=== PATIENT | female | born 1940 | race Caucasian/White ===

== ENCOUNTER 2016-06-16 13:38 | Inpatient (IN) | payer OTHER ==
[~2016-06-16] VITALS: Ht 149.9 cm; Wt 70.0 kg
[~2016-06-16 13:38] MED LIST: ALLEGRA ALLERG180 MG PO; AMARYL4 MG PO; ASPIR-LOW81 MG PO; ATARAX,VISTARIL25 MG PO; CAL-CITRATE PL1 EACH PO; CARVEDILOL6.25 MG PO; CIPRO250 MG PO; COUMADIN,JANTOVE5 MG PO; COUMADIN2.5 MG PO; COUMADIN5 MG PO; COZAAR100 MG PO; CRESTOR20 MG PO; FENOFIBRATE145 M1 PO; FISH OIL CONC1 EACH PO; GLIMEPIRIDE4 MG PO; Glucophage PO; HUMALOG (UNIT)1 UNIT IV; HUMALOG100 UNIT/1 SQ; HYDROCORTISONE30 G2 TP; HYZAAR 50-121 TABLET PO; Hyzaar 50-12.5 PO; IRON325 M1 PO; LANTUS (UNITS)1 UNIT IV/IM; LANTUS 3 M100 UNITS/ SC; LANTUS 3 M100 UNITS1 SC; LANTUS100 UNIT/1 SQ; LASIX20 MG PO; LEVEMIR100 UNIT/2 SC; LEVOFLOXACIN750 MG PO; LIDODERM 5% P1 PATCH TD; LISINOPRIL10 MG PO; LOPRESSOR100 MG PO; METFORMIN HCL500 MG PO; NORMODYNE,TRAN200 MG PO; NORMODYNE200 MG PO; NORVASC5 MG PO; NOVOLOG PE100 UNITS/ SC; PREVACID; PROPYLTHIOURACI50 M1 PO; PROPYLTHIOURACI50 MG PO; SENOKOT S,PE1 TABLET PO; SERTRALINE HCL50 MG PO; TAGAMET200 MG PO; TAGAMET300 MG PO; THERAGRAN1 TABLET PO; TOPROL XL100 MG PO; TRIAMTERENE-HC1 EAC1 PO; TRICOR145 MG PO; TRILIPIX135 MG PO; TYLENOL EXTRA500 MG PO; Tylenol Extra Streng PO; ULTRAM50 MG PO; VITAMIN D400 UNIT PO; Vicodin,Lortab 5/500 PO; XARELTO15 MG PO; ZOCOR80 MG PO; Zocor PO; amaryl; metformin hcl
[2016-06-16 15:12] LABS: HEMATOCRIT 35.3 % (36.0-46.0); MCH 30.3 PG (29.0-34.0); MCHC 32.6 G/DL (30.0-36.0); MCV 92.9 FL (83-99); MEAN PLAT.VOLUME 9.4 uM^3 (9.5-12.4); PLATELET COUNT 281 K/uL (156-360); RBC DIS.WIDTH-CV 12.9 % (11.8-14.6); RBC DIS.WIDTH-SD 41.9 % (39-53); WHITE BLOOD COUNT 7.3 K/uL (4.1-10.2)
[2016-06-16 15:22] LABS: CHLORIDE 106 mEq/L (99-109); POTASSIUM 4.7 mEq/L (3.7-5.4); SODIUM 138 mEq/L (136-147)
[2016-06-16 15:24] LABS: GLUCOSE 282 mg/dL (70-99)
[2016-06-16 15:25] LABS: ANION GAP 11 MEQ/L (2-14)
[2016-06-16 15:28] LABS: GFR ESTIMATE (CALCULATED) 36 mL/min/
[2016-06-16 15:29] LABS: UREA NITROGEN (BUN) 20 mg/dL (9-23)
[2016-06-16] MEDS ORDERED: LO-DOSE ASPIRIN81 M2 PO (17:07)
[2016-06-16] MEDS ORDERED: FUROSEMIDE20 MG PO (17:09)
[2016-06-16] MEDS ORDERED: TAGAMET300 MG PO (17:09)
[2016-06-16] MEDS ORDERED: CYMBALTA20 MG PO (17:11)
[2016-06-16] MEDS ORDERED: NORVASC10 MG PO (17:11)
[2016-06-16] MEDS ORDERED: HYDROXYZINE HCL25 MG PO (17:11)
[2016-06-16] MEDS ORDERED: VALSARTAN160 MG PO (17:12)
[2016-06-16 17:18] LABS: TROP-I INTERPRETATION NEGATIVE; TROPONIN-I 0.02 ng/mL (0.0-0.30)
[2016-06-16 18:17] LABS: POINT-OF-CARE USER ID 608261323
[2016-06-16 20:30] VITALS: BP 160/70
[2016-06-16 20:44] VITALS: BP 172/72
[2016-06-16 23:37] VITALS: BP 172/70
[2016-06-17 00:06] VITALS: BP 145/70
[2016-06-17 03:52] VITALS: BP 160/70
[2016-06-17 05:14] LABS: HEMATOCRIT 34.1 % (36.0-46.0); MCH 30.1 PG (29.0-34.0); MCHC 32.3 G/DL (30.0-36.0); MCV 93.4 FL (83-99); MEAN PLAT.VOLUME 9.2 uM^3 (9.5-12.4); PLATELET COUNT 252 K/uL (156-360); RBC DIS.WIDTH-CV 12.8 % (11.8-14.6); RBC DIS.WIDTH-SD 41.9 % (39-53); RED BLOOD COUNT 3.65 M/uL (3.80-5.20); WHITE BLOOD COUNT 8.3 K/uL (4.1-10.2)
[2016-06-17 05:24] LABS: CHLORIDE 107 mEq/L (99-109); POTASSIUM 4.3 mEq/L (3.7-5.4); SODIUM 139 mEq/L (136-147)
[2016-06-17 05:26] LABS: GLUCOSE 157 mg/dL (70-99)
[2016-06-17 05:28] LABS: ANION GAP 8 MEQ/L (2-14); TOTAL BILIRUBIN 0.4 mg/dL (0.0-1.0)
[2016-06-17 05:30] LABS: ALKALINE PHOSPHATASE 23 IU/L (3-129); GFR ESTIMATE (CALCULATED) > 59 mL/min/
[2016-06-17 05:31] LABS: UREA NITROGEN (BUN) 13 mg/dL (9-23)
[2016-06-17 08:24] VITALS: BP 157/96
[2016-06-17 12:05] VITALS: BP 161/69
[2016-06-17 16:32] VITALS: BP 137/83
[2016-06-17 19:18] LABS: ADD MIUA? NO; BILIRUBIN NEGATIVE; BLOOD NEGATIVE; COLOR YELLOW ((YELLOW)); GLUCOSE (STRIP) 100; KETONES NEGATIVE; LEUKOCYTES NEGATIVE; NITRITE NEGATIVE; PROTEIN (STRIP) 30; SPECIFIC GRAVITY 1.013 (1.000-1.030); UROBILINOGEN 0.2 MG/DL (0.2-1.0)
[2016-06-17 20:50] VITALS: BP 182/74
[2016-06-17 21:55] LABS: POINT-OF-CARE METER ID UU14149397
[2016-06-18] VITALS (7 sets, daily range): BP systolic 140–165; BP diastolic 60–101
[2016-06-18 06:51] LABS: HEMATOCRIT 35.4 % (36.0-46.0); MCH 30.5 PG (29.0-34.0); MCHC 32.2 G/DL (30.0-36.0); MCV 94.7 FL (83-99); MEAN PLAT.VOLUME 9.7 uM^3 (9.5-12.4); PLATELET COUNT 239 K/uL (156-360); RBC DIS.WIDTH-CV 13.1 % (11.8-14.6); RBC DIS.WIDTH-SD 45.4 % (39-53); RED BLOOD COUNT 3.74 M/uL (3.80-5.20); WHITE BLOOD COUNT 7.8 K/uL (4.1-10.2)
[2016-06-18 06:57] LABS: Estimated Average Glucose 177 mg/dL (70-123); HEMOGLOBIN A1c (GLYCOHEMOGLOB) 7.8 % HGB (Below 5.7)
[2016-06-18 11:31] LABS: POINT-OF-CARE METER ID UU14149397
[2016-06-19] VITALS (7 sets, daily range): BP systolic 132–199; BP diastolic 67–82
[2016-06-19 21:17] LABS: POINT-OF-CARE METER ID UU14149397
[2016-06-20 04:15] VITALS: BP 156/74
[2016-06-20 07:02] LABS: POINT-OF-CARE METER ID UU14149397
[2016-06-20 08:27] VITALS: BP 127/86; BP 154/69
[2016-06-20 11:41] LABS: POINT-OF-CARE METER ID UU14149397
[2016-06-20 11:47] VITALS: BP 141/65
[2016-06-20] MEDS ORDERED: PERCOCET 5/31 TABLET PO (12:17)
[2016-06-20] MEDS ORDERED: COLACE100 MG PO (12:17)
[2016-06-20 16:02] VITALS: BP 128/61
[2016-06-20 17:05] LABS: POINT-OF-CARE METER ID UU14149397
== END 2016-06-20 17:57 | disposition home health service (06) | DRG 184 ==
LOC: EME → EDBD 13:38 → EDOF 16:59 → 3EAST 16:59
PROVIDERS: Emergency Medicine; Internal Medicine; Surgery
PROC: 0HQ0XZZ Repair Scalp Skin, External Approach (ICD-10-PCS; principal; 2016-06-16)
DX: S22.42XA Multiple fractures of ribs, left side, initial encounter for closed fracture (principal); S32.10XA Unspecified fracture of sacrum, initial encounter for closed fracture; S01.01XA Laceration without foreign body of scalp, initial encounter; W01.198A Fall on same level from slipping, tripping and stumbling with subsequent striking against other object, initial encounter; I10 Essential (primary) hypertension; I25.10 Atherosclerotic heart disease of native coronary artery without angina pectoris; K21.9 Gastro-esophageal reflux disease without esophagitis; E78.5 Hyperlipidemia, unspecified; E11.9 Type 2 diabetes mellitus without complications; I25.2 Old myocardial infarction; M81.0 Age-related osteoporosis without current pathological fracture; K59.00 Constipation, unspecified; R13.10 Dysphagia, unspecified; L57.0 Actinic keratosis; Z95.1 Presence of aortocoronary bypass graft; Z98.1 Arthrodesis status; Z86.718 Personal history of other venous thrombosis and embolism; Z79.4 Long term (current) use of insulin; Z87.891 Personal history of nicotine dependence
CPT/HCPCS: 70450; 71010; 71250; 72128; 72131; 80048; 80053; 81003; 82948; 83036; 84484; 85027; 93005; 97530 GO; 99202; 99281; 99285; J1170; J1644; J1815; J2270

== ENCOUNTER 2017-07-09 08:52 | Emergency (ER) | payer OTHER ==
[~2017-07-09] VITALS: Ht 149.9 cm; Wt 63.3 kg
[~2017-07-09 08:52] MED LIST changes: +COLACE100 MG PO; +CYMBALTA20 MG PO; +FUROSEMIDE20 MG PO; +HYDROXYZINE HCL25 MG PO; +LO-DOSE ASPIRIN81 M2 PO; +NORVASC10 MG PO; +PERCOCET 5/31 TABLET PO; +VALSARTAN160 MG PO
[2017-07-09 10:01] LABS: BASOPHIL (%) 0.8 % (0-1); BASOPHIL COUNT 0.1 K/uL (0-0.1); EOSINOPHIL (%) 0.7 % (0-5); EOSINOPHIL COUNT 0.1 K/uL (0-0.3); HEMATOCRIT 37.9 % (36.0-46.0); HEMOGLOBIN 12.7 G/DL (11.9-15.5); IMMATURE GRANULOCYTE (%) 0.5 % (0.0-0.7); LYMPHOCYTE (%) 15.3 % (15-42); LYMPHOCYTE COUNT 1.2 K/uL (1.0-2.8); MCH 30.4 PG (29.0-34.0); MCHC 33.5 G/DL (30.0-36.0); MCV 90.7 FL (83-99); MONOCYTE (%) 13.6 % (3-12); NEUTROPHIL (%) 69.1 % (45-76); NEUTROPHIL COUNT 5.2 K/uL (1.8-6.4); PLATELET COUNT 236 K/uL (156-360); RBC DIS.WIDTH-CV 12.8 % (11.8-14.6); RBC DIS.WIDTH-SD 42.7 % (39-53); RED BLOOD COUNT 4.18 M/uL (3.80-5.20); WHITE BLOOD COUNT 7.6 K/uL (4.1-10.2)
[2017-07-09 10:14] LABS: CHLORIDE 101 mEq/L (99-109); POTASSIUM 4.7 mEq/L (3.7-5.4); SODIUM 131 mEq/L (136-147)
[2017-07-09 10:15] LABS: GLUCOSE 697 mg/dL (70-99)
[2017-07-09 10:19] LABS: CREATININE 1.4 mg/dL (0.6-1.3); GFR ESTIMATE (CALCULATED) 39 mL/min/
[2017-07-09 10:20] LABS: UREA NITROGEN (BUN) 22 mg/dL (9-23)
[2017-07-09 10:37] LABS: APPEARANCE CLEAR ((CLEAR)); BILIRUBIN NEGATIVE; BLOOD NEGATIVE; COLOR YELLOW ((YELLOW)); GLUCOSE (STRIP) >=500; KETONES 5; LEUKOCYTES NEGATIVE; NITRITE NEGATIVE; PROTEIN (STRIP) >=500; SPECIFIC GRAVITY 1.024 (1.000-1.030); UROBILINOGEN 0.2 MG/DL (0.2-1.0)
[2017-07-09 10:45] LABS: BACTERIA NONE SEEN /HPF; EPITHELIAL CELLS RARE /HPF; HYALINE CASTS 0-5 /LPF; MUCUS NONE SEEN /LPF; RED BLOOD CELLS 0-5 /HPF (0-5); UCUL ADDED? NO; WHITE BLOOD CELLS 0-5 /HPF (0-5)
[2017-07-09 10:52] LABS: BICARBONATE 23.1 mEq/L (22-26); CARBOXY HGB 1.7 % (0-5); COMMENTS - BLOOD GASES A+C+; PCO2 40 mm Hg (35-45); PO2 67 mm Hg (80-100); SITE RR; pH 7.37 (7.35-7.45)
[2017-07-09 10:53] LABS: TOTAL RESP RATE 18 resp/min
[2017-07-09 15:46] LABS: THYROTROPIN (TSH) 0.95 MIU/L (0.4-5.5)
[2017-07-09 18:19] VITALS: BP 180/68
== END 2017-07-09 18:23 | disposition home or self-care (01) ==
LOC: EME 08:52
PROVIDERS: Emergency Medicine
DX: E11.65 Type 2 diabetes mellitus with hyperglycemia (principal); E11.40 Type 2 diabetes mellitus with diabetic neuropathy, unspecified; F32.9 Major depressive disorder, single episode, unspecified; F41.9 Anxiety disorder, unspecified; J44.9 Chronic obstructive pulmonary disease, unspecified; K21.9 Gastro-esophageal reflux disease without esophagitis; M81.0 Age-related osteoporosis without current pathological fracture; Z79.84 Long term (current) use of oral hypoglycemic drugs; Z86.718 Personal history of other venous thrombosis and embolism; Z87.891 Personal history of nicotine dependence; Z88.0 Allergy status to penicillin; Z90.12 Acquired absence of left breast and nipple; Z95.1 Presence of aortocoronary bypass graft; Z79.4 Long term (current) use of insulin
CPT/HCPCS: 36600; 71045; 80048; 81003; 82803; 82948; 84443; 84443 GA; 85025; 99281; 99285; J0360; J7030

== ENCOUNTER 2017-09-10 15:36 | Observation (INO) | payer OTHER ==
[~2017-09-10] VITALS: Ht 162.6 cm; Wt 69.3 kg
[2017-09-10 16:18] LABS: GLUCOSE 421 mg/dL (70-99)
[2017-09-10 16:28] LABS: HEMATOCRIT 38.3 % (36.0-46.0); HEMOGLOBIN 13.1 G/DL (11.9-15.5); MCHC 34.2 G/DL (30.0-36.0); MCV 90.5 FL (83-99); PLATELET COUNT 227 K/uL (156-360); RBC DIS.WIDTH-CV 12.7 % (11.8-14.6); RBC DIS.WIDTH-SD 41.5 % (39-53); RED BLOOD COUNT 4.23 M/uL (3.80-5.20); WHITE BLOOD COUNT 6.6 K/uL (4.1-10.2)
[2017-09-10 16:38] LABS: ALBUMIN 3.5 g/dL (3.2-4.8); CHLORIDE 100 mEq/L (99-109); POTASSIUM 2.8 mEq/L (3.7-5.4); SODIUM 139 mEq/L (136-147)
[2017-09-10 16:39] LABS: MAGNESIUM 1.7 mg/dL (1.3-2.7)
[2017-09-10 16:40] LABS: GLUCOSE 398 mg/dL (70-99)
[2017-09-10 16:41] LABS: TOTAL PROTEIN 6.4 g/dL (6.4-8.3)
[2017-09-10 16:42] LABS: TOTAL BILIRUBIN 0.5 mg/dL (0.0-1.0)
[2017-09-10 16:44] LABS: ALKALINE PHOSPHATASE 67 IU/L (3-129); GFR ESTIMATE (CALCULATED) 57 mL/min/; PHOSPHORUS 3.3 mg/dL (2.5-4.9)
[2017-09-10 16:45] LABS: UREA NITROGEN (BUN) 9 mg/dL (9-23)
[2017-09-10 16:46] LABS: AST (GOT) 16 IU/L (2-34)
[2017-09-10 16:47] LABS: ALT (GPT) 13 IU/L (3-49); CARBON DIOXIDE (BICARBONATE) 31.8 MEQ/L (20-31)
[2017-09-10 16:48] LABS: LIPASE 69 U/L (1.0-51.0)
[2017-09-10 16:53] LABS: TROP-I INTERPRETATION NEGATIVE; TROPONIN-I 0.06 ng/mL (0.0-0.30)
[2017-09-10 20:00] LABS: APPEARANCE CLEAR ((CLEAR)); BILIRUBIN NEGATIVE; BLOOD NEGATIVE; COLOR YELLOW ((YELLOW)); GLUCOSE (STRIP) >=500; KETONES NEGATIVE; LEUKOCYTES NEGATIVE; NITRITE NEGATIVE; PROTEIN (STRIP) >=500; SPECIFIC GRAVITY 1.018 (1.000-1.030); UROBILINOGEN 0.2 MG/DL (0.2-1.0)
[2017-09-10] MEDS ORDERED: TYLENOL650 MG PR (20:04)
[2017-09-10] MEDS ORDERED: DULCOLAX10 MG PR (20:05)
[2017-09-10 20:06] LABS: BACTERIA NONE SEEN /HPF; EPITHELIAL CELLS RARE /HPF; HYALINE CASTS 0-5 /LPF; MUCUS NONE SEEN /LPF; RED BLOOD CELLS 0-5 /HPF (0-5)
[2017-09-10] MEDS ORDERED: HALDOL10 MG/5 ML PO (20:06)
[2017-09-10] MEDS ORDERED: HYOSCYAMINE0.125 M2 PO (20:06)
[2017-09-10] MEDS ORDERED: ATIVAN0.5 MG PO (20:06)
[2017-09-10] MEDS ORDERED: LOSARTAN POTASS50 MG PO (20:07)
[2017-09-10] MEDS ORDERED: METAMUCIL0.52 GM PO (20:08)
[2017-09-10] MEDS ORDERED: MORPHINE CON20 MG/M1 PO (20:08)
[2017-09-10] MEDS ORDERED: NOVOLIN,HU100 UNITS/ SC (20:08)
[2017-09-10] MEDS ORDERED: COMPAZINE10 MG PO (20:09)
[2017-09-10] MEDS ORDERED: RANITIDINE HCL150 MG PO (20:09)
[2017-09-10] MEDS ORDERED: SENNA PLUS TAB1 EACH PO (20:10)
[2017-09-10 21:35] VITALS: BP 190/71
[2017-09-10 22:21] LABS: TROP-I INTERPRETATION NEGATIVE; TROPONIN-I 0.07 ng/mL (0.0-0.30)
[2017-09-10 22:28] VITALS: BP 157/69
[2017-09-11 02:11] LABS: CHLORIDE 108 MEQ/L (99-109); SODIUM 142 MEQ/L (136-147); UREA NITROGEN (BUN) 6 mg/dL (9-23)
[2017-09-11 02:12] LABS: CREATININE 0.5 MG/DL (0.6-1.3); GFR ESTIMATE (CALCULATED) > 59 mL/min/; GLUCOSE 152 mg/dL (70-99); POTASSIUM 3.4 MEQ/L (3.7-5.4)
[2017-09-11 03:31] LABS: HEMATOCRIT 34.8 % (36.0-46.0); HEMOGLOBIN 11.9 G/DL (11.9-15.5); MCH 31.4 PG (29.0-34.0); MCHC 34.2 G/DL (30.0-36.0); MCV 91.8 FL (83-99); PLATELET COUNT 213 K/uL (156-360); RBC DIS.WIDTH-CV 12.9 % (11.8-14.6); RED BLOOD COUNT 3.79 M/uL (3.80-5.20); WHITE BLOOD COUNT 6.9 K/uL (4.1-10.2)
[2017-09-11 03:32] VITALS: BP 206/84
[2017-09-11 03:40] LABS: ALBUMIN 2.9 g/dL (3.2-4.8); CHLORIDE 107 mEq/L (99-109); POTASSIUM 3.7 mEq/L (3.7-5.4); SODIUM 142 mEq/L (136-147)
[2017-09-11 03:43] LABS: GLUCOSE 144 mg/dL (70-99)
[2017-09-11 03:44] LABS: TOTAL BILIRUBIN 0.6 mg/dL (0.0-1.0)
[2017-09-11 03:46] VITALS: BP 189/83
[2017-09-11 03:46] LABS: ALKALINE PHOSPHATASE 55 IU/L (3-129); CREATININE 0.6 mg/dL (0.6-1.3); GFR ESTIMATE (CALCULATED) > 59 mL/min/
[2017-09-11 03:47] LABS: UREA NITROGEN (BUN) 5 mg/dL (9-23)
[2017-09-11 03:48] LABS: AST (GOT) 14 IU/L (2-34); TOTAL PROTEIN 4.8 g/dL (6.4-8.3)
[2017-09-11 03:49] LABS: ALT (GPT) 11 IU/L (3-49)
[2017-09-11 03:51] LABS: TROP-I INTERPRETATION NEGATIVE; TROPONIN-I 0.06 ng/mL (0.0-0.30)
[2017-09-11 06:04] VITALS: BP 114/56
[2017-09-11 07:47] VITALS: BP 131/64
[2017-09-11 08:07] LABS: HEMOGLOBIN A1c (GLYCOHEMOGLOB) 10.1 % (Below 5.7)
[2017-09-11 11:41] VITALS: BP 150/71
== END 2017-09-11 16:50 | disposition hospice, home (50) ==
LOC: EME 15:36 → EDOF 19:49 → 5SOUTH 19:49 → ENRESERV 19:51 → 5SOUTH 21:17
PROVIDERS: Emergency Medicine; Internal Medicine
DX: E86.0 Dehydration (principal); E87.6 Hypokalemia; S00.83XA Contusion of other part of head, initial encounter; W19.XXXA Unspecified fall, initial encounter; W22.09XA Striking against other stationary object, initial encounter; Y93.9 Activity, unspecified; Y92.000 Kitchen of unspecified non-institutional (private) residence as the place of occurrence of the external cause; I25.10 Atherosclerotic heart disease of native coronary artery without angina pectoris; Z95.1 Presence of aortocoronary bypass graft; E11.65 Type 2 diabetes mellitus with hyperglycemia; Z79.4 Long term (current) use of insulin; I10 Essential (primary) hypertension; E78.5 Hyperlipidemia, unspecified; Z86.718 Personal history of other venous thrombosis and embolism; I25.2 Old myocardial infarction; M81.0 Age-related osteoporosis without current pathological fracture; K21.9 Gastro-esophageal reflux disease without esophagitis; E05.90 Thyrotoxicosis, unspecified without thyrotoxic crisis or storm; Z90.49 Acquired absence of other specified parts of digestive tract; Z90.710 Acquired absence of both cervix and uterus; R60.0 Localized edema; Z87.891 Personal history of nicotine dependence; Z82.3 Family history of stroke; Z83.49 Family history of other endocrine, nutritional and metabolic diseases; Z88.0 Allergy status to penicillin; Z88.8 Allergy status to other drugs, medicaments and biological substances; Z79.891 Long term (current) use of opiate analgesic; Z79.82 Long term (current) use of aspirin; R74.8 Abnormal levels of other serum enzymes; Z66 Do not resuscitate
CPT/HCPCS: 70450; 71250; 72125; 80048 91; 80053; 81003; 82803; 82948; 83036; 83605; 83690; 83735; 83930; 84100; 84484; 84999; 85027; 87040; 93005; 99281; 99285; G0378; J1644; J1815; J3480; J7030; J7050; Q0164

== ENCOUNTER 2017-10-19 17:28 | Observation (INO) | payer OTHER ==
[~2017-10-19] VITALS: Ht 157.5 cm; Wt 70.0 kg
[~2017-10-19 17:28] MED LIST changes: +ATIVAN0.5 MG PO; +COMPAZINE10 MG PO; +DULCOLAX10 MG PR; +HALDOL10 MG/5 ML PO; +HYOSCYAMINE0.125 M2 PO; +LOSARTAN POTASS50 MG PO; +METAMUCIL0.52 GM PO; +MORPHINE CON20 MG/M1 PO; +NOVOLIN,HU100 UNITS/ SC; +RANITIDINE HCL150 MG PO; +SENNA PLUS TAB1 EACH PO; +TYLENOL650 MG PR
[2017-10-19 19:03] LABS: BASOPHIL (%) 0.8 % (0-1); BASOPHIL COUNT 0.1 K/uL (0-0.1); EOSINOPHIL (%) 0.7 % (0-5); EOSINOPHIL COUNT 0.1 K/uL (0-0.3); HEMATOCRIT 40.9 % (36.0-46.0); HEMOGLOBIN 14.1 G/DL (11.9-15.5); IMMATURE GRANULOCYTE (%) 0.9 % (0.0-0.7); LYMPHOCYTE (%) 10.8 % (15-42); LYMPHOCYTE COUNT 1.5 K/uL (1.0-2.8); MCHC 34.5 G/DL (30.0-36.0); MCV 89.9 FL (83-99); MONOCYTE (%) 9.2 % (3-12); MONOCYTE COUNT 1.3 K/uL (0-0.8); NEUTROPHIL (%) 77.6 % (45-76); NEUTROPHIL COUNT 10.9 K/uL (1.8-6.4); PLATELET COUNT 251 K/uL (156-360); RBC DIS.WIDTH-CV 12.2 % (11.8-14.6); RBC DIS.WIDTH-SD 40.6 % (39-53); RED BLOOD COUNT 4.55 M/uL (3.80-5.20); WHITE BLOOD COUNT 14.1 K/uL (4.1-10.2)
[2017-10-19 19:25] LABS: CHLORIDE 101 mEq/L (99-109); POTASSIUM 4.2 mEq/L (3.7-5.4); SODIUM 136 mEq/L (136-147)
[2017-10-19 19:27] LABS: GLUCOSE 272 mg/dL (70-99)
[2017-10-19 19:30] LABS: CREATININE 0.8 mg/dL (0.6-1.3); GFR ESTIMATE (CALCULATED) > 59 mL/min/
[2017-10-19 19:31] LABS: UREA NITROGEN (BUN) 16 mg/dL (9-23)
[2017-10-20 01:35] VITALS: BP 175/92
== END 2017-10-20 01:39 | disposition hospice, home (50) ==
LOC: EME 17:28 → TRA 17:28 → EDOF 23:03 → ENRESERV 23:03 → EDOF 23:03 → ENRESERV 23:32 → CANRESERV 23:32 → EDOF 10-20 01:39
PROVIDERS: Emergency Medicine
DX: S22.42XA Multiple fractures of ribs, left side, initial encounter for closed fracture (principal); S42.192A Fracture of other part of scapula, left shoulder, initial encounter for closed fracture; S20.212A Contusion of left front wall of thorax, initial encounter; W01.0XXA Fall on same level from slipping, tripping and stumbling without subsequent striking against object, initial encounter; C80.1 Malignant (primary) neoplasm, unspecified; Z87.891 Personal history of nicotine dependence; Z79.82 Long term (current) use of aspirin; Z79.4 Long term (current) use of insulin; Z88.0 Allergy status to penicillin; Z88.1 Allergy status to other antibiotic agents
CPT/HCPCS: 71260; 73030; 73060; 73110; 80048; 80053; 82948; 85025; 85027; G0378; J1885; J3010; J7030